=== PATIENT | female | born 1965 | race Hispanic/Latino ===

== ENCOUNTER 2025-01-30 17:15 | Inpatient (IN) | payer SELFPAY ==
[~2025-01-30] VITALS: Ht 165.1 cm; Wt 86.2 kg
[2025-01-30] MEDS ORDERED: ONDANSETRON HCL INJ 2MG/ML 2ML 2 MG/ML VIAL ONE (17:19)
[2025-01-30] MEDS: ONDANSETRON HCL INJ 2MG/ML 2ML 2 MG/ML VIAL IV STA (17:25)
[2025-01-30 17:46] LABS: BASOPHILS % 0.5 % (0.0-1.0); HEMOGLOBIN 14.7 g/dL (12.0-16.0); LYMPHOCYTES # (AUTO) 1.1 (1.0-3.2); LYMPHOCYTES % 13.5 % (18.0-39.1); MEAN CORPUSCULAR HEMOGLOBIN 31.5 pg (28-32); MEAN CORPUSCULAR VOLUME 90.1 fL (81-99); MONOCYTES # (AUTO) 0.5 (0.2-0.8); MONOCYTES % 5.6 % (4.4-11.3); NEUTROPHILS # (AUTO) 6.5 (2.1-6.9); PLATELET COUNT 343 x10e3/uL (140-360); RED BLOOD COUNT 4.66 x10e6/uL (3.6-5.1); RED CELL DISTRIBUTION WIDTH 12.1 % (11.7-14.4)
[2025-01-30] MEDS: SODIUM CHLORIDE 0.9% 1000ML 1,000 ML IV STA (17:49)
[2025-01-30] MEDS: Morphine 4mg INJECTION 4 MG/ML INJ IV STA (17:49)
[2025-01-30 18:38] LABS: ALANINE AMINOTRANSFERASE 29 IU/L (0-55); ALBUMIN 3.9 g/dL (3.5-5.0); ALBUMIN/GLOBULIN RATIO 1.6 (0.8-2.0); ALKALINE PHOSPHATASE 56 IU/L (40-150); ANION GAP 16.7 mmol/L (8-16); BILIRUBIN,TOTAL 0.6 mg/dL (0.2-1.2); BLOOD UREA NITROGEN 10 mg/dL (7-26); BUN/CREATININE RATIO 14 (6-25); CALCIUM 8.8 mg/dL (8.4-10.2); CARBON DIOXIDE 19 mmol/L (22-29); CHLORIDE 107 mmol/L (98-107); CREATINE KINASE 26 IU/L (29-168); CREATININE, SERUM 0.73 mg/dL (0.57-1.11); EST GLOMERULAR FILTRATION RATE 95 ML/MIN (>=60); GLUCOSE 188 mg/dL (74-118); LIPASE 16 U/L (8-78); POTASSIUM 3.7 mmol/L (3.5-5.1); SODIUM 139 mmol/L (136-145); TOTAL PROTEIN 6.3 g/dL (6.5-8.1)
[2025-01-30] MEDS ORDERED: IOPAMIDOL 370 MG/ML 100 ML INFUS..BTL INJ ONE (18:43)
[2025-01-30 18:47] LABS: TROPONIN I < 0.001 ng/mL (0-0.300)
[2025-01-30] MEDS: HALOPERIDOL LACTATE 5 MG/ML VIAL IM ONE (19:23)
[2025-01-30 19:48] LABS: CLARITY,URINE CLEAR (CLEAR); COLOR,URINE YELLOW (YELLOW); PH,URINE 8.5 (5 - 7)
[2025-01-30 19:49] LABS: BILIRUBIN,URINE NEGATIVE (NEGATIVE); GLUCOSE, URINE 1+ (NEGATIVE); KETONES,URINE 2+ (NEGATIVE); LEUKOCYTE ESTERASE ,URINE NEGATIVE (NEGATIVE); NITRITE,URINE NEGATIVE (NEGATIVE); PROTEIN,URINE DIPSTICK NEGATIVE (NEGATIVE); URINE UROBILINOGEN 0.2 mg/dL (0.2 - 1)
[2025-01-30 19:50] LABS: AMPHETAMINES SCREEN,URINE NEGATIVE (NEGATIVE); BENZODIAZEPINES SCREEN,URINE NEGATIVE (NEGATIVE); CANNABINOIDS SCREEN,URINE NEGATIVE (NEGATIVE); COCAINE SCREEN,URINE NEGATIVE (NEGATIVE); METHADONE SCREEN, URINE NEGATIVE (NEGATIVE); OPIATES SCREEN,URINE POSITIVE (NEGATIVE); PHENCYCLIDINE SCREEN,URINE NEGATIVE (NEGATIVE)
[2025-01-30 19:52] LABS: BACTERIA,URINE FEW /HPF; EPITHELIAL CELLS,URINE RARE /LPF; MUCUS,URINE RARE; RBC,URINE 0-5 /HPF (0-5); WBC,URINE (MAN) 0-5 /HPF (0-5)
[2025-01-30] MEDS ORDERED: DEXTROSE 50% SYRINGE 50 ML IV PRN (20:00)
[2025-01-30] MEDS ORDERED: Morphine 4mg INJECTION 4 MG/ML INJ IV PRN (20:00)
[2025-01-30] MEDS: SODIUM CHLORIDE 0.9% 1000ML 1,000 ML IV SCH (20:11)
[2025-01-30 20:19] VITALS: PULSE 78; RESP 17; O2SAT 97
[2025-01-30] MEDS: INSULIN REGULAR, HUMAN 100 UNIT/1 ML SQ SCH (20:52)
[2025-01-30] MEDS: PROMETHAZINE HCL (IM) 25 MG/ML VIAL IM ONE (22:50)
[2025-01-31] VITALS (9 sets, daily range): BP systolic 119–135; BP diastolic 57–69; PULSE 74–94; RESP 17–20; TEMP 98.1–98.9; O2SAT 96–100
[2025-01-31 05:31] LABS: BASOPHILS % 0.1 % (0.0-1.0); EOSINOPHILS % 0.1 % (0.0-6.0); HEMATOCRIT 38.1 % (34.2-44.1); LYMPHOCYTES # (AUTO) 0.7 (1.0-3.2); LYMPHOCYTES % 8.2 % (18.0-39.1); MEAN CORPUSCULAR HEMOGLOBIN 31.4 pg (28-32); MEAN CORPUSCULAR HGB CONC 34.1 g/dL (31-35); MONOCYTES # (AUTO) 0.1 (0.2-0.8); MONOCYTES % 1.8 % (4.4-11.3); NEUTROPHILS # (AUTO) 7.1 (2.1-6.9); NEUTROPHILS % 89.5 % (38.7-80.0); PLATELET COUNT 277 x10e3/uL (140-360); RED BLOOD COUNT 4.14 x10e6/uL (3.6-5.1); RED CELL DISTRIBUTION WIDTH 12.1 % (11.7-14.4); WHITE BLOOD COUNT 7.96 x10e3/uL (4.8-10.8)
[2025-01-31 05:53] LABS: ALBUMIN 3.8 g/dL (3.5-5.0); ALBUMIN/GLOBULIN RATIO 1.2 (0.8-2.0); BILIRUBIN,TOTAL 0.7 mg/dL (0.2-1.2); CALCIUM 8.1 mg/dL (8.4-10.2); CREATININE, SERUM 0.74 mg/dL (0.57-1.11); TOTAL PROTEIN 6.9 g/dL (6.5-8.1)
[2025-01-31] MEDS: ONDANSETRON HCL INJ 2MG/ML 2ML 2 MG/ML VIAL IV PRN (08:44)
[2025-01-31] MEDS ORDERED: METFORMIN HCL500 MG PO (12:56)
[2025-01-31] MEDS: HYDROXYZINE HCL 10 MG TAB PO PRN (21:22)
[2025-01-31] MEDS: SIMETHICONE 80 MG CHEW PO PRN (21:22)
[2025-01-31] MEDS: METOCLOPRAMIDE HCL 10 MG/2ML VIAL IV SCH (22:26)
[2025-02-01] VITALS (7 sets, daily range): BP systolic 109–159; BP diastolic 55–88; PULSE 67–85; RESP 18–20; TEMP 98–98.4; O2SAT 97–100
[2025-02-01 05:33] LABS: BASOPHILS % 0.3 % (0.0-1.0); HEMATOCRIT 32.9 % (34.2-44.1); HEMOGLOBIN 11.4 g/dL (12.0-16.0); LYMPHOCYTES # (AUTO) 1.1 (1.0-3.2); MEAN CORPUSCULAR HEMOGLOBIN 31.4 pg (28-32); MEAN CORPUSCULAR HGB CONC 34.7 g/dL (31-35); MEAN CORPUSCULAR VOLUME 90.6 fL (81-99); MONOCYTES # (AUTO) 0.5 (0.2-0.8); MONOCYTES % 6.2 % (4.4-11.3); NEUTROPHILS # (AUTO) 5.8 (2.1-6.9); NEUTROPHILS % 77.7 % (38.7-80.0); PLATELET COUNT 262 x10e3/uL (140-360); RED BLOOD COUNT 3.63 x10e6/uL (3.6-5.1); RED CELL DISTRIBUTION WIDTH 12.3 % (11.7-14.4); WHITE BLOOD COUNT 7.42 x10e3/uL (4.8-10.8)
[2025-02-01 06:02] LABS: ALBUMIN 3.4 g/dL (3.5-5.0); ALBUMIN/GLOBULIN RATIO 1.4 (0.8-2.0); ANION GAP 12.3 mmol/L (8-16); CALCIUM 7.7 mg/dL (8.4-10.2); CREATININE, SERUM 0.65 mg/dL (0.57-1.11); TOTAL PROTEIN 5.9 g/dL (6.5-8.1)
[2025-02-01 06:04] LABS: POTASSIUM 3.3 mmol/L (3.5-5.1)
[2025-02-01] MEDS ORDERED: DEXTROSE 50% SYRINGE 50 ML IV PRN (12:15)
[2025-02-01] MEDS: POTASSIUM CHLORIDE 10MEQ EA PO ONE (12:53)
[2025-02-01] MEDS: INSULIN LISPRO 100 UNIT/1 ML 3ML VIAL SQ SCH (15:51)
[2025-02-02] VITALS (8 sets, daily range): BP systolic 103–132; BP diastolic 55–71; PULSE 63–75; RESP 18–20; TEMP 98–98.8; O2SAT 96–100
[2025-02-02] MEDS: MECLIZINE HCL 12.5 MG TAB PO STA (00:22)
[2025-02-02] MEDS: MECLIZINE HCL 12.5 MG TAB PO SCH (05:52)
[2025-02-02 05:59] LABS: BASOPHILS % 0.3 % (0.0-1.0); EOSINOPHILS # (AUTO) 0.1 (0.0-0.4); EOSINOPHILS % 0.8 % (0.0-6.0); HEMATOCRIT 35.6 % (34.2-44.1); HEMOGLOBIN 12.3 g/dL (12.0-16.0); LYMPHOCYTES # (AUTO) 1.5 (1.0-3.2); LYMPHOCYTES % 25.3 % (18.0-39.1); MEAN CORPUSCULAR HEMOGLOBIN 31.1 pg (28-32); MEAN CORPUSCULAR HGB CONC 34.6 g/dL (31-35); MEAN CORPUSCULAR VOLUME 89.9 fL (81-99); MONOCYTES # (AUTO) 0.5 (0.2-0.8); MONOCYTES % 8.3 % (4.4-11.3); NEUTROPHILS # (AUTO) 3.8 (2.1-6.9); NEUTROPHILS % 64.8 % (38.7-80.0); PLATELET COUNT 277 x10e3/uL (140-360); RED BLOOD COUNT 3.96 x10e6/uL (3.6-5.1); RED CELL DISTRIBUTION WIDTH 11.9 % (11.7-14.4); WHITE BLOOD COUNT 5.92 x10e3/uL (4.8-10.8)
[2025-02-02 06:34] LABS: CHOL/HDL RATIO 2.9 (3.0-3.6)
[2025-02-02 06:38] LABS: ALBUMIN 3.5 g/dL (3.5-5.0); ALBUMIN/GLOBULIN RATIO 1.3 (0.8-2.0); ANION GAP 13.3 mmol/L (8-16); BILIRUBIN,TOTAL 1.1 mg/dL (0.2-1.2); CALCIUM 8.2 mg/dL (8.4-10.2); CREATININE, SERUM 0.6 mg/dL (0.57-1.11); TOTAL PROTEIN 6.1 g/dL (6.5-8.1)
[2025-02-02 06:53] LABS: POTASSIUM 3.3 mmol/L (3.5-5.1)
[2025-02-02 06:56] LABS: FERRITIN 117.39 ng/mL (4.63-204.00); THYROID STIMULATING HORMONE 1.079 uIU/mL (0.350-4.940)
[2025-02-02 07:17] LABS: FOLATE 12.9 ng/mL (7.0-15.4)
[2025-02-02] MEDS ORDERED: SIMETHICONE 80 MG CHEW PO PRN (14:15)
[2025-02-02] MEDS: SIMETHICONE 80 MG CHEW PO SCH (14:38)
[2025-02-02] MEDS: POTASSIUM CHLORIDE 10MEQ EA PO ONE (14:38)
[2025-02-02] MEDS: MECLIZINE HCL 12.5 MG TAB ONE (22:39)
[2025-02-03] VITALS (9 sets, daily range): BP systolic 97–119; BP diastolic 58–75; PULSE 60–92; RESP 16–18; TEMP 97.9–98.6; O2SAT 97–100
[2025-02-03 05:00] LABS: BASOPHILS % 0.7 % (0.0-1.0); EOSINOPHILS % 0.2 % (0.0-6.0); HEMATOCRIT 37.1 % (34.2-44.1); HEMOGLOBIN 13.1 g/dL (12.0-16.0); LYMPHOCYTES # (AUTO) 1.5 (1.0-3.2); LYMPHOCYTES % 27.8 % (18.0-39.1); MEAN CORPUSCULAR HEMOGLOBIN 31.6 pg (28-32); MEAN CORPUSCULAR HGB CONC 35.3 g/dL (31-35); MEAN CORPUSCULAR VOLUME 89.6 fL (81-99); MONOCYTES # (AUTO) 0.4 (0.2-0.8); MONOCYTES % 7.8 % (4.4-11.3); NEUTROPHILS # (AUTO) 3.5 (2.1-6.9); NEUTROPHILS % 63.1 % (38.7-80.0); PLATELET COUNT 279 x10e3/uL (140-360); RED BLOOD COUNT 4.14 x10e6/uL (3.6-5.1); RED CELL DISTRIBUTION WIDTH 11.9 % (11.7-14.4); WHITE BLOOD COUNT 5.53 x10e3/uL (4.8-10.8)
[2025-02-03 07:01] LABS: ALBUMIN 3.5 g/dL (3.5-5.0); ALBUMIN/GLOBULIN RATIO 1.3 (0.8-2.0); ANION GAP 12.3 mmol/L (8-16); BILIRUBIN,TOTAL 1.5 mg/dL (0.2-1.2); CALCIUM 8.3 mg/dL (8.4-10.2); CREATININE, SERUM 0.63 mg/dL (0.57-1.11); MAGNESIUM 1.8 MG/DL (1.3-2.1); POTASSIUM 3.3 mmol/L (3.5-5.1); TOTAL PROTEIN 6.1 g/dL (6.5-8.1)
[2025-02-03] MEDS: POTASSIUM CHLORIDE 10MEQ EA PO ONE (08:21)
[2025-02-03] MEDS: CALCIUM CARBONATE 500 MG CHEWABLE TABS PO PRN (17:04)
[2025-02-04 03:18] VITALS: BP 99/64; PULSE 76; RESP 18; TEMP 98.6; O2SAT 99
[2025-02-04 06:25] LABS: ALBUMIN 3.4 g/dL (3.5-5.0); ALBUMIN/GLOBULIN RATIO 1.3 (0.8-2.0); ANION GAP 12.2 mmol/L (8-16); CALCIUM 8.3 mg/dL (8.4-10.2); CREATININE, SERUM 0.61 mg/dL (0.57-1.11); MAGNESIUM 1.8 MG/DL (1.3-2.1); TOTAL PROTEIN 6.1 g/dL (6.5-8.1)
[2025-02-04 06:31] LABS: POTASSIUM 3.2 mmol/L (3.5-5.1)
[2025-02-04 07:48] VITALS: BP 119/76; PULSE 87; RESP 17; TEMP 98.6; O2SAT 100
[2025-02-04 08:00] VITALS: BP 119/76; PULSE 87; RESP 17; TEMP 98.6; O2SAT 100
[2025-02-04] MEDS: POTASSIUM CHLORIDE 10MEQ EA PO ONE (09:12)
[2025-02-04] MEDS ORDERED: TUMS ULTRA400 MG PO (11:08)
[2025-02-04] MEDS ORDERED: SIMETHICONE80 MG PO (11:08)
[2025-02-04] MEDS ORDERED: MECLIZINE HCL12.5 MG PO (11:08)
[2025-02-04] MEDS ORDERED: ONDANSETRON ODT8 MG PO (11:15)
[2025-02-04 11:46] VITALS: BP 125/78; PULSE 68; RESP 16; TEMP 97.3; O2SAT 100
== END 2025-02-04 13:00 | disposition home or self-care (01) | DRG 392 ==
LOC: ER 17:22 → ERHOLD 19:59 → MED/SURG2 01-31 12:02 → OBSVTOIN 02-01 12:12
PROVIDERS: ADMIT Internal Medicine; ATTEND Internal Medicine
DX: A08.4 Viral intestinal infection, unspecified (principal); R42 Dizziness and giddiness; E87.6 Hypokalemia; K76.0 Fatty (change of) liver, not elsewhere classified; K38.1 Appendicular concretions; E11.9 Type 2 diabetes mellitus without complications; Z79.84 Long term (current) use of oral hypoglycemic drugs; D18.03 Hemangioma of intra-abdominal structures; E66.811 Obesity, class 1; Z68.31 Body mass index [BMI] 31.0-31.9, adult; Z79.899 Other long term (current) drug therapy
CPT/HCPCS: 36415; 74177; 80053; 80061; 80307; 81001; 82550; 82607; 82728; 82746; 82948; 83036; 83540; 83690; 83735; 84443; 84466; 84484; 85025; 93005; 94799; 96372; 99284; G0378; J1630; J2270; J2405; J2470; J2550; J2765; J3410; J7030; Q9967